=== PATIENT | female | born 1995 | race Hispanic/Latino ===

== ENCOUNTER 2020-07-10 02:35 | Emergency (ER) | payer OTHER ==
[2020-07-10 03:29] LABS: WBC/HPF None Seen HPF (0-3)
[2020-07-10 03:34] LABS: Bilirubin Negative (Negative); Blood, Urine 3+ (Negative); Glucose, Urine (Dipstick) Normal (Negative); Ketone, Urine Negative (Negative); Leukocyte Negative Leu/uL (Negative); Nitrite Negative (Negative); Protein, Urine (Dipstick) 10 mg/dL (Neg-Trace); Specific Gravity, Urine 1.021 (1.002-1.036); Urobilinogen Normal mg/dL (Less than 2); pH, Urine 6.5 (5.0-9.0)
[2020-07-10 03:36] LABS: Clarity Turbid (Clear)
[2020-07-10 03:37] LABS: Bacteria/HPF 1+ HPF (None Seen)
== END 2020-07-10 04:25 | disposition home or self-care (01) ==
LOC: ERS 02:35
DX: O20.0 Threatened abortion (principal); Z3A.08 8 weeks gestation of pregnancy
CPT/HCPCS: 36415; 81003; 81015; 84702; 86900; 86901